=== PATIENT | male | born 1985 | race African-American/Black ===

== ENCOUNTER 2017-06-30 18:55 | Emergency (ER) | payer OTHER ==
[~2017-06-30] VITALS: Ht 180.3 cm; Wt 90.7 kg
[2017-06-30 18:55] VITALS: BP 168/100
[2017-06-30 19:48] VITALS: BP 168/100
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
--- NOTE | 2017-07-01 10:49 | Diagnostic Imaging Report ---
Indication: Dyspnea Comparison: None A single view chest radiograph was obtained. Findings: Cardiomediastinal appearance is within normal limits for age. Pulmonary vascularity is appropriate. The diaphragmatic contour is smooth and costophrenic angles are sharp. No pleural effusions are identified. The bones are unremarkable. Impression: No acute findings
== END 2017-06-30 20:15 ==
LOC: EDBD 18:55 → EMR 19:50
DX: S29.8XXA Other specified injuries of thorax, initial encounter (principal); Y35.891A Legal intervention involving other specified means, law enforcement official injured, initial encounter; Y92.89 Other specified places as the place of occurrence of the external cause
CPT/HCPCS: 71010; 99283